=== PATIENT | female | born 1975 | race Caucasian/White ===

== ENCOUNTER 2020-05-22 08:00 | Emergency (ER) | payer SELFPAY ==
[~2020-05-22] VITALS: Ht 157.5 cm; Wt 68.0 kg
[2020-05-22 09:13] LABS: BASOPHILS % 0.7 % (0.0-2.0); EOSINOPHILS % 1.1 % (0.0-5.0); HEMATOCRIT. 24.8 % (36.0-48.0); HEMOGLOBIN. 7.4 g/dL (12.0-16.0); LYMPHOCYTES % 14.7 % (20.0-50.0); MEAN CORPUSCULAR HEMOGLOBIN 18.6 pg (28.0-32.0); MEAN PLATELET VOLUME 7.2 fl (7.4-10.4); MONOCYTES % 5.9 % (2.0-8.0); NEUTROPHILS % 77.6 % (40.0-76.0); PLATELET 326 x1000/uL (130-400); RED CELL DISTRIBUTION WIDTH 20.3 % (11.6-14.6)
[2020-05-22 09:23] LABS: CHLORIDE 113 mEq/L (98-107)
[2020-05-22 09:29] LABS: ETHANOL BLOOD < 10 mg/dL
[2020-05-22 09:33] LABS: HCG SCREEN NEGATIVE
[2020-05-22 09:44] LABS: PLATELET ESTIMATE NORMAL
[2020-05-22] MEDS ORDERED: SODIUM CHLORIDE 0.9% 1,000 ML IV ONE (11:15)
[2020-05-22] MEDS ORDERED: MECLIZINE 25MG TABLET PO ONE (12:15)
[2020-05-22] MEDS ORDERED: DEXAMETHASONE 10 MG/ML VIAL IV ONE (12:15)
[2020-05-22 16:10] VITALS: BP 116/72
== END 2020-05-22 16:54 | disposition home or self-care (01) ==
LOC: ER 08:14
DX: R42 Dizziness and giddiness (principal); I10 Essential (primary) hypertension; Z86.73 Personal history of transient ischemic attack (TIA), and cerebral infarction without residual deficits; Z98.890 Other specified postprocedural states
CPT/HCPCS: 36415; 70450; 71045; 80053; 80320; 83690; 83880; 84484; 84703; 85025; 93005; 96361; 96374; 99285; J1100; J7030; J8597; G0480